=== PATIENT | male | born 1965 | race Caucasian/White ===

== ENCOUNTER 2017-08-02 20:18 | Emergency (ER) | payer BC ==
[2017-08-02] MEDS ORDERED: Bacitracin Oint 1 GM U/D Packet TOP ONE (20:43)
--- NOTE | 2017-08-02 21:30 | EDM.PDOC ---
ED HPI GENERAL MEDICAL PROBLEM - General Chief Complaint: Laceration Stated Complaint: RIGHT CHEEK LACERATION Time Seen by Provider: 08/02/17 20:43 Source of Information: Reports: Patient History Limitations: Reports: No Limitations - History of Present Illness INITIAL COMMENTS - FREE TEXT/NARRATIVE: laceration to right cheek; this is a 51 year old male present to ER for care. He reports was [place], [place], slipped, the knife he had in his hand cut him across the right facial cheek. Reports no other injury. Last Td 2 months ago. 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 [Unable to Verify Home Med List] 08/02/17 [History] Past Medical History - Past Health History Medical/Surgical History: Denies Medical/Surgical History - Past Surgical History Musculoskeletal Surgical History: Reports: Arthroscopic Knee Social & Family History - Living Situation & Occupation Occupation: Employed (lives near [place].) ED ROS GENERAL - Review of Systems Review Of Systems: ROS reveals no pertinent complaints other than HPI. Skin: Reports: Wound (right facial cheek laceration) Hematologic/Lymphatic: Reports: No Symptoms ED EXAM, SKIN/RASH Exam: See Below Exam Limited By: No Limitations General Appearance: Alert, WD/WN, No Apparent Distress Ears: Normal External Exam Nose: Normal Inspection Throat/Mouth: Normal Inspection, Normal Lips, Normal Teeth, Normal Gums, Normal Oropharynx, Normal Voice, No Airway Compromise, Other (did not visualize any oral cavity trauma.) Head: Normocephalic, Facial Tenderness (right cheek) Neck: Normal Inspection, Supple, Non-Tender, Full Range of Motion Respiratory/Chest: No Respiratory Distress Cardiovascular: Normal Peripheral Pulses Extremities: Normal Inspection, Normal Range of Motion, Non-Tender, Normal Capillary Refill Neurological: Alert, Oriented, CN II-XII Intact, Normal Cognition, Normal Gait, No Motor/Sensory Deficits Psychiatric: Normal Affect, Normal Mood Skin: Warm, Dry, Wound/Incision Location, Skin: Face (right cheek) Characteristics: Linear Associated features: Tenderness, Weeping Lymphatic: No Adenopathy ED SKIN PROCEDURES - Laceration/Wound Repair Right Medial Cheek Lac/Wound length In cm: 2.5 Appearance: Subcutaneous, Linear, Clean Distal NVT: Neuro & Vascular Intact, No Tendon Injury Anesthetic Type: Local Local Anesthesia - Lidocaine (Xylocaine): 1% with EPI Local Anesthetic Volume: 2cc Skin Prep: Chlorhexidine (Hibiciens), Saline Closed with: Sutures Suture Size: 4-0 # of Sutures: 8 Suture Type: Prolene, Interrupted, Simple Suture Size: 4-0 # of Sutures: 5 Repaired with: Chromic Sterile Dressing Applied: Nurse Tetanus Status Addressed: Other (last Td 2 months ago) Complications: Yes Complication Description: sycope event after laceration completed. sat up on edge of stretcher and fainted. laid down on stretcher by Provider. no injuries. applied oxygen, given juice. resolved. no further symptoms. Mr. Sweeney reports "okay now" vital signs stable. Course - Vital Signs Last Recorded V/S: Last Vital Signs Temp 36.7 C 08/02/17 20:38 Pulse 75 08/02/17 20:38 Resp 14 08/02/17 20:38 BP 135/94 H 08/02/17 20:38 Pulse Ox 98 08/02/17 20:38 - Orders/Labs/Meds Meds: Medications Discontinued Medications Generic Name Dose Route Start Last Admin Trade Name Sultana PRN Reason Stop Dose Admin Bacitracin 1 dose 08/02/17 20:43 08/02/17 20:54 Bacitracin Oint 1 Gm TOP 08/02/17 20:44 1 dose ONETIME ONE Administration Lidocaine HCl 5 ml 08/02/17 20:43 08/02/17 20:54 Xylocaine-Mpf 1% INJECT 08/02/17 20:44 5 ml ONETIME ONE Administration Departure - Departure Time of Disposition: 21:42 Disposition: Home, Self-Care 01 Condition: Good Clinical Impression: Laceration of cheek, right Qualifiers: Encounter type: initial encounter Qualified Code(s): S01.411A - Laceration without foreign body of right cheek and temporomandibular area, initial encounter - Discharge Information Instructions: Facial Laceration, [id number] Referrals: PCP,None [Primary Care Provider] - Forms: ED Department Discharge Care Plan Goals: Right cheek laceration with sutures -8 sutures, have removal in 7 to 10 days -apply antibiotic ointment to laceration two times a day for 3 days then keep clean and dry -Keflex 500mg; take one capsule two times a day for 7 days -Tylenol with codeine take one every 3 to 4 hours as needed for pain return to Clinic or ER for increased pain, drainage, redness, fevers, chills or not improved. - Problem List & Annotations (1) Laceration of cheek, right SNOMED Code(s): 322589409 Code(s): S01.411A - LACERATION W/O FB OF RIGHT CHEEK AND TMJ AREA, INIT Status: Acute Priority: High Current Visit: Yes Qualifiers: Encounter type: initial encounter Qualified Code(s): S01.411A - Laceration without foreign body of right cheek and temporomandibular area, initial encounter - Problem List Review Problem List Initiated/Reviewed/Updated: Yes - Assessment/Plan Plan: Right cheek laceration with sutures -8 sutures, have removal in 7 to 10 days -apply antibiotic ointment to laceration two times a day for 3 days then keep clean and dry -Keflex 500mg; take one capsule two times a day for 7 days -Tylenol with codeine take one every 3 to 4 hours as needed for pain return to Clinic or ER for increased pain, drainage, redness, fevers, chills or not improved.
== END 2017-08-02 21:56 | disposition home or self-care (01) ==
LOC: JP.ED 20:18
DX: S01.411A Laceration without foreign body of right cheek and temporomandibular area, initial encounter (principal); W26.0XXA Contact with knife, initial encounter
CPT/HCPCS: 12011; 99283-25